=== PATIENT | male | born 1945 | race Caucasian/White ===

== ENCOUNTER → 2016-08-15 | Outpatient (CLI) | payer OTHER, BC ==
[~2016-08-15] MED LIST: HYDR25TA5 PO; METO50TA17 PO; NRV5 PO; TAMS0.4C38 PO
== END | disposition home or self-care (01) ==
LOC: C.PATHSPEC 17:06
PROVIDERS: ATTEND Urology
DX: R31.0 Gross hematuria (principal); N30.21 Other chronic cystitis with hematuria